=== PATIENT | male | born 1975 | race African-American/Black ===

== ENCOUNTER 2018-08-28 04:06 | Emergency (ER) | payer OTHER ==
[~2018-08-28] VITALS: Ht 177.8 cm; Wt 90.1 kg
[2018-08-28] MEDS ORDERED: KETOROLAC 60MG/2ML VIAL IM STA (05:25)
[2018-08-28] MEDS ORDERED: METHOCARBAMOL 500MG TABLET PO ONE (06:30)
[2018-08-28 07:03] LABS: CLARITY URINE CLEAR (CLEAR); COLOR URINE YELLOW (YELLOW); KETONES URINE NEGATIVE (NEGATIVE); LEUKOCYTE ESTERASE URINE NEGATIVE (NEGATIVE); NITRITE URINE NEGATIVE (NEGATIVE); OCCULT BLOOD URINE NEGATIVE (NEGATIVE); PH URINE 5.5 (4.5-8.0); PROTEIN URINE NEGATIVE (NEGATIVE)
[2018-08-28] MEDS ORDERED: HYDROCODONE/ACETAMINOPHEN 5/325MG TABLET PO ONE (08:15)
[2018-08-28 08:28] VITALS: BP 146/96
== END 2018-08-28 11:19 | disposition left against medical advice (07) ==
LOC: ER 04:06
DX: M54.5 Low back pain (principal); E11.9 Type 2 diabetes mellitus without complications
CPT/HCPCS: 72110; 81003; 96372; 99284; J1885